=== PATIENT | female | born 1990 | race Caucasian/White ===

== ENCOUNTER 2019-09-06 09:11 | Inpatient (IN) ==
[2019-09-06] MEDS ORDERED: OXYTOCIN 30 UNITS/500 ML BAG IV PRN ×2 (09:21→11:53)
[2019-09-06] MEDS ORDERED: PENICILLIN G POTASSIUM 3 MU in DEXTROSE 5% 100 ML IV PRN (09:21)
[2019-09-06] MEDS ORDERED: LACTATED RINGER'S 1,000 ML IV PRN (09:21)
[2019-09-06 09:39] LABS: Hematocrit (blood only) 39.9 % (37-47); Mean Corpuscular Hemoglobin 31.7 pg (25-34); Mean Corpuscular Volume 90.5 fL (80-100); Mean Platelet Volume 12.9 fL (7.4-10.4); Platelet Count 206 K/uL (130-400); RDW Coefficient of Variation 13.1 % (11.5-14.5); RDW Standard Deviation 42.8 fL (36.4-46.3); Red Blood Count 4.41 M/uL (4.2-5.4); White Blood Count 10.09 K/uL (4.8-10.8)
[2019-09-06] MEDS ORDERED: ePHEDrine sulfate 50 MG/ML AMP ONE (09:40)
[2019-09-06] MEDS ORDERED: fentaNYL 2MCG/ML ROPIV 1.25MG/ML 100 ML BAG EPI ONE (09:40)
[2019-09-06] MEDS ORDERED: fentaNYL citrate 100 MCG/2 ML VIAL ONE (09:40)
[2019-09-06] MEDS ORDERED: BUPIVACAINE 0.25% 30 ML VIAL ONE (09:40)
[2019-09-06 09:43] LABS: Mean Corpuscular Hgb Conc 35.1 g/dL (32-36)
[2019-09-06] MEDS ORDERED: PENICILLIN G POTASSIUM 6 MU in DEXTROSE 5% 250 ML IV ONE (09:45)
--- NOTE | 2019-09-06 09:47 | Obstetrical Progress Note ---
Date of Service September 06, 2019 Subjective Met pt and reviewed PNC On arriva;l , pt is Results & Data ([facility]) Vital Signs (Past 12 Hours) Vital Signs Temp Pulse Resp BP 09/06/19 09:22 36.7 C 20 09/06/19 09:17 72 142/95 H
--- NOTE | 2019-09-06 09:52 | Obstetrical Progress Note ---
Date of Service September 06, 2019 Subjective Met pt and reviewed PNC Pt was 8cm dilated on admission and requesting epidural FHR; CAT II with ctx VE; 9/100/0 Ctx 1-2 Antibx. for GBS prophyl. started Results & Data ([facility]) Vital Signs (Past 12 Hours) Vital Signs Temp Pulse Resp BP Pulse Ox 09/06/19 09:47 65 99 09/06/19 09:22 36.7 C 20 09/06/19 09:17 72 142/95 H
[2019-09-06] MEDS ORDERED: ONDANSETRON INJ 2 MG/ML 2 ML VIAL IV PRN (10:07)
[2019-09-06] MEDS ORDERED: NALBUPHINE HCL INJ 10 MG/ML AMP IV PRN (10:07)
[2019-09-06] MEDS ORDERED: fentaNYL 2MCG/ML ROPIV 1.25MG/ML 100 ML BAG EPI PRN (10:07)
[2019-09-06] MEDS ORDERED: NALOXONE HCL 1 MG in SODIUM CHLORIDE 0.9% 1000ML 1,000 ML IV PRN (10:07)
[2019-09-06] MEDS ORDERED: ePHEDrine sulfate 50 MG/ML AMP IV PRN (10:07)
[2019-09-06] MEDS ORDERED: NALOXONE HCL 0.4 MG/1 ML VIAL/CARP IV PRN (10:07)
[2019-09-06] MEDS ORDERED: DiphenhydrAMINE HCL 50 MG/ML VIAL IV PRN (10:07)
[2019-09-06] MEDS ORDERED: PROMETHAZINE HCL 25 MG in SODIUM CHLORIDE 0.9% 50 ML IV PRN (10:07)
--- NOTE | 2019-09-06 10:07 | Anesthesiology Consultation ---
Date of Service September 06, 2019 Assessment & Plan Chart Review Chart Review: Acceptable Risk for Surgery, Patient NOT seen in Pre Admission Testing and Acceptable Risk for Labor Epidural Consults Requested none ASA ASA3 Proposed Anesthesia Anesthesia Type: Labor Epidural, CSE and Spinal Risk / Benefits Reviewed With: PT / POA / Parent / Guardian, Accepts Plan and Informed Consent Obtained History Height/Weight Height: 5 ft 4 in Weight: 117.48 kg Allergies Allergy/AdvReac Type Severity Reaction Status Date / Time Sulfa (Sulfonamide Allergy Severe ANAPHYLAXIS Verified 05/25/13 08:55 Antibiotics) Medications Home Medications Medication Instructions Recorded Confirmed Last Taken vit-iron fum-folic ac 1 tab PO DAILY 09/06/19 09/06/19 09/05/19 08:00 [ Vitamin] Active Medications Generic Name Dose Route Start Last Admin Trade Name Freq PRN Reason Stop Dose Admin Lactated Ringer's 1,000 mls @ 125 mls/hr 09/06/19 09:21 09/06/19 09:43 Lr IV 09/08/19 09:20 999 mls/hr .Q8H PRN Administration L&D Protocol Protocol Penicillin G Potassium 6 mu/ 262 mls @ 262 mls/hr 09/06/19 09:45 09/06/19 09:43 Dextrose IV 09/06/19 10:44 262 mls/hr 0945 ONE Administration NPO Date Last Intake of Fluids: 09/06/19 Time Last Intake of Fluids: 07:00 Date Last Intake of Solids: 09/05/19 Time Last Intake of Solids: 23:00 Exercise / Class Metabolic Activity III < 4 Walking/Shop/Light housework Past Anesthesia History No Hx of Anesthesia Complications and No Family Hx of Anesthesia Complications History of PONV No Hx of PONV and No Hx of Motion Sickness Social History Smoking Status: Never smoker Hx Alcohol Use: No Hx Substance Use: No Physical Exam Vital Signs Last Vital Signs Temp 36.7 C 09/06/19 09:22 Pulse 65 09/06/19 10:02 Resp 20 09/06/19 09:22 BP 117/53 L 09/06/19 10:01 Pulse Ox 100 09/06/19 10:02 Constitutional + morbidly obese ENMT Mouth: + dentition abnormality, + poor dentition and + small oral opening Thyromental Distance: < 3.5 Finger Breadths Mallampati Class: III Neck normal visual inspection, trachea midline and + thick neck Respiratory normal respiratory effort Auscultation: lungs clear to auscultation bilaterally Cardiovascular Rate/Rhythm: regular rate and regular rhythm Heart Sounds: no murmur Vessels: no carotid bruit Musculoskeletal Spine: lumbar spine normal to inspection; normal cervical ROM Neurologic moves all extremities Motor/Sensory: no sensory deficit Psychiatric Orientation: alert and oriented x 3 Testing Laboratory Results 09/06/19 09:28
[2019-09-06] MEDS ORDERED: BENZOCAINE 20% AER SPR 82.5 GM CAN EXT PRN (11:53)
[2019-09-06] MEDS ORDERED: HYDROCORTISONE ACETATE 25 MG SUPP PR PRN (11:53)
[2019-09-06] MEDS ORDERED: bisacodyL 10 MG SUPP PR PRN (11:53)
[2019-09-06] MEDS ORDERED: ACETAMINOPHEN 325 MG TAB PO PRN (11:53)
[2019-09-06] MEDS ORDERED: SUPERCREAM 0.870% 15 GM JAR EXT PRN (11:53)
--- NOTE | 2019-09-06 12:06 | Delivery Summary ---
DATE OF OPERATION: 09/06/2019 The patient delivered a live infant female in left occiput anterior presentation. There was nuchal cord which was easily reduced. Infant was delivered, placed on mother's abdomen. Delayed cord clamp was performed after 1 minute. Cord blood was obtained. Placenta spontaneously delivered. Inspection of placenta showed normal grossly looking placenta with 3-vessel cord. Inspection of the perineum shows a second-degree midline laceration, which was repaired in layers with 2-0 Vicryl stitch. Rectal exam post repair showed good sphincter tone, no sutures palpated in the rectum. Estimated blood loss is 451 mL. Baby and mother are doing well and stable in recovery. All instruments were removed from the vagina and accounted for including sponges, retractors and needles x2. I attest to the content of the Intraoperative Record and any orders documented therein. Any exceptions are noted below. MTDD
[2019-09-06] MEDS: IBUPROFEN 600 MG TAB PO PRN (20:39)
[2019-09-06] MEDS: DOCUSATE SODIUM 100 MG CAP PO SCH (20:39)
[2019-09-07] MEDS: IBUPROFEN 600 MG TAB PO PRN (04:25)
[2019-09-07 06:26] LABS: Hematocrit (blood only) 34.4 % (37-47); Hemoglobin 11.6 g/dL (12.0-16.0); Mean Corpuscular Hemoglobin 31.3 pg (25-34); Mean Corpuscular Hgb Conc 33.7 g/dL (32-36); Mean Corpuscular Volume 92.7 fL (80-100); Mean Platelet Volume 12.9 fL (7.4-10.4); Platelet Count 161 K/uL (130-400); RDW Coefficient of Variation 13.5 % (11.5-14.5); RDW Standard Deviation 45.4 fL (36.4-46.3); Red Blood Count 3.71 M/uL (4.2-5.4); White Blood Count 9.51 K/uL (4.8-10.8)
[2019-09-07] MEDS: DOCUSATE SODIUM 100 MG CAP PO SCH ×2 (07:43→20:01)
[2019-09-07] MEDS: PRENATAL VITAMIN 1 TAB PO SCH (07:43)
[2019-09-07] MEDS: FERROUS SULFATE 325 MG TAB PO SCH (07:43)
--- NOTE | 2019-09-07 08:57 | Obstetrical Progress Note ---
Date of Service September 07, 2019 Assessment & Plan Admission and Anticipated Discharge Date Admission Date: September 06, 2019 Subjective Patient is seen and examined. She feels well, no complaints. Ambulating without dizziness Voiding without difficulty Tolerating regular diet with out N&V Bleeding is minimal No fever/ chills/ CP/ SOB/ N&V/ Leg pain Bottle feeding without problems Vital Signs Temp Pulse Resp BP 09/07/19 07:45 36.7 C 71 18 117/75 09/07/19 04:20 36.4 C L 69 18 124/78 09/06/19 23:45 36.7 C 75 18 125/79 Lab Results 09/06/19 09/07/19 Range/Units 09:28 05:55 WBC 10.09 9.51 (4.8-10.8) K/uL RBC 4.41 3.71 L (4.2-5.4) M/uL Hgb 14.0 11.6 L (12.0-16.0) g/dL Hct 39.9 34.4 L (37-47) % MCV 90.5 92.7 (80-100) fL MCH 31.7 31.3 (25-34) pg MCHC 35.1 33.7 (32-36) g/dL RDW Std Deviation 42.8 45.4 (36.4-46.3) fL RDW Coeff of [place] 13.1 13.5 (11.5-14.5) % Plt Count 206 161 (130-400) K/uL MPV 12.9 H 12.9 H (7.4-10.4) fL PE: General: Alert, orientedx3, NAD Abd: soft, NT, fundus firm, below Umbilicus Perineum intact, Lochia rubra minimal Ext; NT, no edema AP: 28 yo s/p , ppd# 1 VSS Afebrile doing well Continue routine care All questions were answered D/C home tomorrow Results & Data ([facility]) Vital Signs (Past 12 Hours) Vital Signs Temp Pulse Resp BP 09/07/19 07:45 36.7 C 71 18 117/75 09/07/19 04:20 36.4 C L 69 18 124/78 09/06/19 23:45 36.7 C 75 18 125/79
[2019-09-07] MEDS ORDERED: DIPHTHERIA/TETANUS/PERTUSSIS 0.5 ML SYR/VIAL IM ONE (09:00)
[2019-09-07] MEDS ORDERED: bisacodyL 5 MG TABEC PO SCH (20:00)
[2019-09-08 06:38] LABS: Hematocrit (blood only) 35.9 % (37-47)
[2019-09-08] MEDS: FERROUS SULFATE 325 MG TAB PO SCH (07:41)
[2019-09-08] MEDS: PRENATAL VITAMIN 1 TAB PO SCH (07:41)
[2019-09-08] MEDS: DOCUSATE SODIUM 100 MG CAP PO SCH (07:42)
--- NOTE | 2019-09-08 10:12 | Obstetrical Progress Note ---
Date of Service September 08, 2019 Assessment & Plan (1) Normal course: PPD #2 pt doing well d/c home with instructions Results & Data Vital Signs (Past 12 Hours) Vital Signs Temp Pulse Resp BP Pulse Ox 09/08/19 07:30 36.6 C 61 18 118/78 98 09/07/19 23:45 36.8 C 64 18 143/77 H
== END 2019-09-08 12:50 | disposition home or self-care (01) | DRG 807 ==
LOC: OPB 09:11 → 4S1 09:14 → 4S2 15:22